=== PATIENT | male | born 1945 | race Caucasian/White ===

== ENCOUNTER → 2017-08-31 | Outpatient (CLI) | payer MEDICARE, OTHER ==
[~2017-08-31] MED LIST: IOHEXOL 350 MG/ML 150 ML (OMNIPAQUE 350) VIAL IV ONE; NS 100 ML (IVPB) BAG IV ONE
[2017-08-31 14:55] LABS: ABG BASE EXCESS 12.7 MMOL/L (-2.5-2.5); ABG HCO3 38 MMOL/L (23-27); ABG OXYGEN SATURATION 98 % (94-100); ABG PCO2 58 MMHG (35-45); ABG PH 7.42 (7.37-7.43); ABG PO2 89 MMHG (79-93); ABG TCO2 39.7 MMOL/L (21.0-31.0)
[2017-08-31 14:56] LABS: ALLENS TEST YES-POS; PATIENT TEMP 97.3
[2017-08-31 15:15] LABS: BLOOD UREA NITROGEN 20 MG/DL (7-18)
[2017-08-31 15:16] LABS: BUN/CREATININE RATIO 26; CREATININE SERUM 0.76 MG/DL (0.60-1.30); GFR ESTIMATED > 60
--- NOTE | 2017-08-31 16:32 | Diagnostic Imaging Report ---
PROCEDURE: CT angiography of the chest with contrast. TECHNIQUE: Multiple contiguous axial images were obtained through the chest after uneventful bolus administration of intravenous contrast. Reconstructed CTA MIP acquisitions were also performed. INDICATION: COPD. Difficulty breathing. 125 mL of Omnipaque-350 is administered intravenously. FINDINGS: The pulmonary arteries are well opacified with no filling defects to suggest pulmonary embolism. The thoracic aorta is normal in caliber. There is atherosclerotic plaque in the descending aorta with some components of ulcerated plaque noted along the posterior wall in the mid descending aorta. No significant stenosis. There is prominent soft plaque along the proximal aspect of the right common carotid artery with about 40-50% stenosis. There is no mediastinal mass. No significantly enlarged mediastinal, hilar or axillary lymphadenopathy is seen. The cardiac size is normal. No pericardial or pleural effusion. Coronary artery stents in the LAD are suggested. The lungs demonstrate advanced emphysema changes. There is no significant consolidation, mass, or suspicious nodule seen. The osseous structures demonstrate mild degenerative changes. IMPRESSION: 1. Advanced emphysema. 2. No PE or aortic dissection. There is prominent atherosclerotic plaque with ulcerated plaque seen in the descending aorta. No significant stenosis. Dictated by: Dictated on workstation # [id number]
== END ==
LOC: RAD 14:14
PROVIDERS: ATTEND Internal Medicine Critical Care Medicine
DX: J43.9 Emphysema, unspecified (principal); I70.0 Atherosclerosis of aorta
CPT/HCPCS: 36415; 71275; 82565; 82805; 84520